=== PATIENT | female | born 1940 | race Caucasian/White ===

== ENCOUNTER → 2017-10-26 | Outpatient (CLI) | payer MEDICARE, OTHER ==
[~2017-10-26] MED LIST: ATECHL; LISI20 PO; POTCHL20ER PO; Percocet 5-3251 EACH PO; Zofran8 MG PO
== END ==
LOC: PLD 10:04 → LAB SHORT 10:04
DX: C44.609 Unspecified malignant neoplasm of skin of left upper limb, including shoulder (principal); C44.602 Unspecified malignant neoplasm of skin of right upper limb, including shoulder; C44.40 Unspecified malignant neoplasm of skin of scalp and neck
CPT/HCPCS: 88305

== ENCOUNTER → 2018-10-04 | Outpatient (CLI) | payer MEDICARE | END | disposition home or self-care (01) | LOC: PLD 13:48 → LAB SHORT 13:48 | DX: D48.5 Neoplasm of uncertain behavior of skin (principal) | CPT/HCPCS: 88305 ==

== ENCOUNTER → 2019-04-11 | Outpatient (CLI) | payer MEDICARE, OTHER | END | disposition home or self-care (01) | LOC: PLD 11:12 → LAB SHORT 11:12 | DX: D48.5 Neoplasm of uncertain behavior of skin (principal) | CPT/HCPCS: 88305 ==

== ENCOUNTER → 2020-03-09 | Outpatient (CLI) | payer MEDICARE, OTHER ==
[~2020-03-09] MED LIST changes: +ALDACTONE25 MG PO; +AMOCLA500 PO; +CALCIUM 600 +1 EA11 PO; +CENTRUM SILVER1 EAC2 PO; +CLON.1 PO; +FISH OIL PO; +IBUP400 PO; +LOSA25 PO; +MAGNESIUM PO; +METO50 PO; +VISBIOME PROBIOTIC PO; +Vitamin B-121000 MCG PO; +Vitamin D2000 UNIT PO
== END | disposition home or self-care (01) ==
LOC: LAB EV 16:16 → LAB SHORT 16:16
DX: J18.1 Lobar pneumonia, unspecified organism (principal); Z20.828 Contact with and (suspected) exposure to other viral communicable diseases
CPT/HCPCS: U0003

== ENCOUNTER 2020-03-19 19:16 | Inpatient (IN) | payer MEDICARE, OTHER ==
[~2020-03-19] VITALS: Ht 165.1 cm; Wt 89.8 kg
[~2020-03-19 19:16] MED LIST changes: -ALDACTONE25 MG PO; -AMOCLA500 PO; -CALCIUM 600 +1 EA11 PO; -CENTRUM SILVER1 EAC2 PO; -CLON.1 PO; -FISH OIL PO; -IBUP400 PO; -LOSA25 PO; -MAGNESIUM PO; -METO50 PO; -VISBIOME PROBIOTIC PO; -Vitamin B-121000 MCG PO; -Vitamin D2000 UNIT PO
[2020-03-19 20:40] LABS: BASOPHILS ABSOLUTE AUTO 0.05 K/mm3 (0.00-0.23); BASOPHILS PERCENT AUTO 1 % (0-2); EOSINOPHILS ABSOLUTE AUTO 0.32 K/mm3 (0.00-0.68); EOSINOPHILS PERCENT AUTO 4 % (0-6); Hematocrit 54.9 % (33.0-51.0); Hemoglobin 18.3 g/dL (11.5-16.0); IMMATURE GRAN ABSOLUTE AUTO 0.02 K/mm3 (0.00-0.10); IMMATURE GRAN PERCENT AUTO 0 % (0-1); LYMPHOCYTES ABSOLUTE AUTO 1.93 K/mm3 (0.84-5.20); LYMPHOCYTES PERCENT AUTO 24 % (21-46); MONOCYTES ABSOLUTE AUTO 0.69 K/mm3 (0.16-1.47); MONOCYTES PERCENT AUTO 9 % (4-13); Mean Corpuscular HGB 29.1 pg (26.0-34.0); Mean Corpuscular HGB Conc 33.3 g/dL (31.5-36.5); Mean Corpuscular Volume 87 fL (80-100); Mean Platelet Volume 10.6 fL (9.1-12.4); NEUTROPHILS ABSOLUTE AUTO 5.12 K/mm3 (1.96-9.15); NEUTROPHILS PERCENT AUTO 63 % (41-73); Platelet Count 224 K/mm3 (150-400); RDW Coefficient Variation 12.7 % (11.7-14.2); RDW Standard Deviation 41.1 fL (35.1-46.3); Red Blood Cell Count 6.29 M/mm3 (3.80-5.20); White Blood Cell Count 8.13 K/mm3 (4.00-11.30)
[2020-03-19 21:02] LABS: Alanine Aminotransfer (ALT/SGP 25 U/L (12-78); Albumin, Blood 3.6 g/dL (3.4-5.0); Albumin/Globulin Ratio 0.8 (0.8-1.8); Alk Phos 100 U/L (50-136); Anion Gap 7 mmol/L (6-16); Aspartate Aminotrans (AST/SGOT 39 U/L (12-37); Bilirubin, Total 1.2 mg/dL (0.1-1.0); Blood Urea Nitrogen 18 mg/dL (8-24); CO2, Blood 24 mmol/L (21-32); Calcium, Blood 10.4 mg/dL (8.5-10.1); Chloride, Blood 108 mmol/L (98-108); Creatinine, Blood 0.86 mg/dL (0.40-1.00); Globulin, Blood 4.6 g/dL (2.2-4.0); Glomerular Filtration Rate >60 (60-); Glucose, Blood 121 mg/dL (70-99); Potassium, Blood 4.7 mmol/L (3.5-5.5); Sodium, Blood 139 mmol/L (136-145); Total Protein, Blood 8.2 g/dL (6.4-8.2); Troponin I <0.015 ng/mL (0.000-0.040)
[2020-03-20] MEDS ORDERED: LOSA25 PO (05:25)
[2020-03-20] MEDS ORDERED: CLON.1 PO (05:27)
[2020-03-20] MEDS ORDERED: METO50 PO (05:27)
[2020-03-20] MEDS ORDERED: ALDACTONE25 MG PO (05:28)
[2020-03-20] MEDS ORDERED: FISH OIL PO (05:29)
[2020-03-20] MEDS ORDERED: Vitamin B-121000 MCG PO (05:29)
[2020-03-20] MEDS ORDERED: Vitamin D2000 UNIT PO (05:30)
[2020-03-20] MEDS ORDERED: CALCIUM 600 +1 EA11 PO (05:30)
[2020-03-20] MEDS ORDERED: CENTRUM SILVER1 EAC2 PO (05:31)
[2020-03-20] MEDS ORDERED: MAGNESIUM PO (05:31)
[2020-03-20] MEDS ORDERED: IBUP400 PO (05:31)
--- NOTE | 2020-03-20 05:48 | NUR ---
0359 PT ARRIVED TO ROOM FROM ER IN STABLE CONDITION. PT REPORTS SOB THAT INCREASES WITH EXERTION, SHE IS ON RA AT 96%. TELE IS AFIB WITH BBB AT 80'S. NO OTHER APPARENT SIGNS OF DISTRESS. CALL LIGHT IS IN REACH.
--- NOTE | 2020-03-20 05:51 | NUR ---
PT LYING IN BED, EYES CLOSED, APPEARS TO BE RESTING. BREATHING IS EVEN, UNLABORED. NO APPARENT SIGNS OF DISTRESS. CALL LIGHT IS IN REACH. NO OTHER CHANGES THIS SHIFT.
--- NOTE | 2020-03-20 05:51 | NUR ---
PT IS AAO X 4, ON RA AT 96%. PT REPORTS SOB THAT INCREASES WITH EXERTION. TELE IS AFIB WITH BBB, PT HAS A HISTORY OF THIS WELL.
[2020-03-20 06:32] LABS: Appearance, Urine Clear (Clear); Color, Urine Yellow (P-Yellow); Source, Urine Clean Catch
[2020-03-20 06:33] LABS: Bilirubin, Urine Neg (Neg); Blood, Urine Neg (Neg); Glucose Qualitative, Urine Neg (Neg); Ketones, Urine 2+ (Neg); Leukocyte Esterase, Urine Neg (Neg); Nitrite, Urine Neg (Neg); Protein, Urine 1+ (Neg); Urobilinogen, Urine NORM (Normal)
[2020-03-20 06:45] LABS: Adenovirus Not Detected (NOT DETECT); Bordetella pertussis Not Detected (NOT DETECT); Chlamydophila pneumoniae Not Detected (NOT DETECT); Coronavirus 229E Not Detected (NOT DETECT); Coronavirus HKU1 Not Detected (NOT DETECT); Coronavirus NL63 Not Detected (NOT DETECT); Coronavirus OC43 Not Detected (NOT DETECT); Human Metapneumovirus Not Detected (NOT DETECT); Human Rhinovirus/Enterovirus Not Detected (NOT DETECT); Influenza A/2009-H1 Not Detected (NOT DETECT); Influenza A/H1 Not Detected (NOT DETECT); Influenza A/H3 Not Detected (NOT DETECT); Influenza B Not Detected (NOT DETECT); Mycoplasma pneumoniae Not Detected (NOT DETECT); Parainfluenza Virus 1 Not Detected (NOT DETECT); Parainfluenza Virus 2 Not Detected (NOT DETECT); Parainfluenza Virus 3 Not Detected (NOT DETECT); Parainfluenza Virus 4 Not Detected (NOT DETECT); Respiratory Syncytial Virus Not Detected (NOT DETECT); SARS-Cov-2 (COVID-19), BioFire Not Detected (NOT DETECT)
--- NOTE | 2020-03-20 17:45 | NUR ---
SHIFT SUMMARY PT A/O X4 AND IND. DIAGNOSED W/PNEUMONIA MORE THAN A WEEK AGO. GOT IV ANTIBIOTICS IN THE ER PRIOR TO COMING TO MEDICAL FLOOR. CHEST X RAY SHOWED DENSE R LOBE CONSOLIDATION. HYPERTENSIVE WHEN SHE CAME IN. BP DECREASED SINCE GETTING AM HEART MEDICATIONS. WILL PROBABLY DISCHARGE TOMORROW AND FOLLOW UP OP FOR PET SCAN AND CT GUIDED BIOPSY. VSS
[2020-03-21 05:04] LABS: BASOPHILS ABSOLUTE AUTO 0.08 K/mm3 (0.00-0.23); BASOPHILS PERCENT AUTO 1 % (0-2); EOSINOPHILS ABSOLUTE AUTO 0.47 K/mm3 (0.00-0.68); EOSINOPHILS PERCENT AUTO 7 % (0-6); Hemoglobin 16.2 g/dL (11.5-16.0); IMMATURE GRAN ABSOLUTE AUTO 0.01 K/mm3 (0.00-0.10); IMMATURE GRAN PERCENT AUTO 0 % (0-1); LYMPHOCYTES PERCENT AUTO 25 % (21-46); MONOCYTES ABSOLUTE AUTO 0.68 K/mm3 (0.16-1.47); MONOCYTES PERCENT AUTO 10 % (4-13); Mean Corpuscular HGB 29.2 pg (26.0-34.0); Mean Corpuscular HGB Conc 33.1 g/dL (31.5-36.5); Mean Corpuscular Volume 88 fL (80-100); Mean Platelet Volume 10.5 fL (9.1-12.4); NEUTROPHILS ABSOLUTE AUTO 3.68 K/mm3 (1.96-9.15); NEUTROPHILS PERCENT AUTO 57 % (41-73); Platelet Count 183 K/mm3 (150-400); RDW Coefficient Variation 12.8 % (11.7-14.2); RDW Standard Deviation 41.8 fL (35.1-46.3); Red Blood Cell Count 5.54 M/mm3 (3.80-5.20); White Blood Cell Count 6.52 K/mm3 (4.00-11.30)
--- NOTE | 2020-03-21 06:34 | NUR ---
SHIFT SUMMARY PT IS A 79 Y/O FEMALE, ADMITTED FOR RLL PNA. SHE IS A&O X 4, INDEPENDENT IN THE ROOM. TELE SHOWED AFIB IN THE 70S. VITAL SIGNS OTHERWISE STABLE. NO COMPLAINTS OF ACUTE PAIN, NAUSEA OR SOB. SHE COMPLETED 1L OF NS @ 75 ML/HR. PT SLEPT WELL THROUGH THE NIGHT. NO OTHER ACUTE CHANGES IN PT CONDITION NOTED. WILL CONTINUE TO MONITOR AND TREAT PER EMAR UNTIL HAND OFF TO DAY SHIFT RN.
[2020-03-21] MEDS ORDERED: VISBIOME PROBIOTIC PO (10:57)
[2020-03-21] MEDS ORDERED: AMOCLA500 PO (10:58)
--- NOTE | 2020-03-21 11:17 | NUR ---
DISCHARGE INSTRUCTIONS REVIEWED WITH PT- PT VERB UNDERSTANDING. NEW RX FAXED TO [facility]. PT WAITING FOR RIDE HOME
--- NOTE | 2020-03-21 13:02 | NUR ---
1252 PT DISCHARGED PERAONAL BELONGINGS WITH PT
== END 2020-03-21 12:52 | disposition home or self-care (01) | DRG 195 ==
LOC: ER 19:16 → MEDS 19:17
PROVIDERS: Internal Medicine; Physician Assistant; ADMIT Internal Medicine
DX: J18.9 Pneumonia, unspecified organism (principal); I10 Essential (primary) hypertension; Z20.828 Contact with and (suspected) exposure to other viral communicable diseases; R91.8 Other nonspecific abnormal finding of lung field
CPT/HCPCS: 0202U; 36415; 71260; 80053; 83880; 84145; 84484; 85025; 93005; 93010; 96365; 96366; 96367; 96372; G0378; J0456; J0696; J1650; J7030; J7050; Q9967

== ENCOUNTER 2020-05-07 11:27 | Day surgery (SDC) | payer MEDICARE, OTHER ==
[~2020-05-07 11:27] MED LIST changes: +ALDACTONE25 MG PO; +AMOCLA500 PO; +CALCIUM 600 +1 EA11 PO; +CENTRUM SILVER1 EAC2 PO; +CLON.1 PO; +FISH OIL PO; +IBUP400 PO; +LOSA25 PO; +MAGNESIUM PO; +METO50 PO; +VISBIOME PROBIOTIC PO; +Vitamin B-121000 MCG PO; +Vitamin D2000 UNIT PO
--- NOTE | 2020-05-07 12:44 | NUR ---
History, Chart, Medications and Allergies reviewed before start of procedure.Patient confirms NPO status except b/p pill with sip of water. pt in w/c due to sob. on 3lnc at home.
--- NOTE | 2020-05-07 12:57 | NUR ---
05/07/20 Marisa Bales MONITOR INTACT WITH CONTINUOUS PULSE OXIMETRY AND INTERMITTENT BP.
--- NOTE | 2020-05-07 14:30 | NUR ---
PATIENT HAS FREQUENT MOIST COUGH, SOMETIMES PRODUCTIVE. RESP EVEN AND LABORED. BIOX 95% ON 5L O2/NC. LUNGS CLEAR, BUT DIMINISHED T/O.
--- NOTE | 2020-05-07 14:54 | NUR ---
PATIENT TRANSFERED TO RADIOLOGY VIA [facility] FOR CXR.
--- NOTE | 2020-05-07 14:59 | NUR ---
PATIENT BACK FROM RADIOLOGY.
--- NOTE | 2020-05-07 15:09 | NUR ---
REPORT GIVEN TO KINJAL GARCIA RN.
--- NOTE | 2020-05-07 16:05 | NUR ---
PT REPORT FROM CRIS GRACE RN, PT AWAKE AND ORIENTED, SATS 96% ON 3LNC. SAME HOME O2. WAITING FOR RADIOLOGY TO CALL WITH CXR RESULTS.
--- NOTE | 2020-05-07 16:06 | NUR ---
SPOKE TO RADIOLOGY, CXR WITHIN NORMAL LIMITS. PT COUGHING HAS DECREASED TO A TOLERABLE LEVEL PRIOR TO PROCEDURE PER PT AND FAMILY. VS REMAIN STABLE, Patient up to Ambulate independently. Gait steady. Discharge instructions reviewed with patient. Patient verbalizes understanding. Copy given to patient to take home. Patient States Post-Procedure ride home has been arranged. Discharged via wheelchair to private car for ride home. PT ABLE TO CLEAR SECRETIONS, NO EVIDENCE OF BLEEDING NOTED.
== END 2020-05-07 23:17 | disposition home or self-care (01) ==
LOC: ORSCMMR 11:27 → ORD 11:27
PROVIDERS: Internal Medicine Critical Care Medicine
PROC: 0BBF8ZX Excision of Right Lower Lung Lobe, Via Natural or Artificial Opening Endoscopic, Diagnostic (ICD-10-PCS; principal; 2020-05-07 12:30)
PROC: 0BB68ZX Excision of Right Lower Lobe Bronchus, Via Natural or Artificial Opening Endoscopic, Diagnostic (ICD-10-PCS; principal; 2020-05-07 12:30)
DX: C34.31 Malignant neoplasm of lower lobe, right bronchus or lung (principal); R06.01 Orthopnea; R63.1 Polydipsia; R09.02 Hypoxemia; Z99.81 Dependence on supplemental oxygen; Z79.899 Other long term (current) drug therapy
CPT/HCPCS: 71045; 88305; J0171; J2250; J3010; J7120

== ENCOUNTER 2020-05-21 14:49 | Inpatient (IN) | payer MEDICARE, OTHER ==
[~2020-05-21] VITALS: Ht 165.1 cm; Wt 80.5 kg
[2020-05-21 15:29] LABS: BASOPHILS ABSOLUTE AUTO 0.05 K/mm3 (0.00-0.23); BASOPHILS PERCENT AUTO 0 % (0-2); EOSINOPHILS ABSOLUTE AUTO 0.11 K/mm3 (0.00-0.68); EOSINOPHILS PERCENT AUTO 1 % (0-6); IMMATURE GRAN ABSOLUTE AUTO 0.06 K/mm3 (0.00-0.10); IMMATURE GRAN PERCENT AUTO 1 % (0-1); LYMPHOCYTES ABSOLUTE AUTO 0.84 K/mm3 (0.84-5.20); LYMPHOCYTES PERCENT AUTO 7 % (21-46); MONOCYTES ABSOLUTE AUTO 0.64 K/mm3 (0.16-1.47); MONOCYTES PERCENT AUTO 5 % (4-13); Mean Corpuscular HGB 28.4 pg (26.0-34.0); Mean Corpuscular HGB Conc 31.3 g/dL (31.5-36.5); Mean Corpuscular Volume 91 fL (80-100); Mean Platelet Volume 10.7 fL (9.1-12.4); NEUTROPHILS ABSOLUTE AUTO 10.21 K/mm3 (1.96-9.15); NEUTROPHILS PERCENT AUTO 86 % (41-73); Platelet Count 257 K/mm3 (150-400); RDW Coefficient Variation 13.2 % (11.7-14.2); RDW Standard Deviation 44.7 fL (35.1-46.3); Red Blood Cell Count 6.68 M/mm3 (3.80-5.20); White Blood Cell Count 11.91 K/mm3 (4.00-11.30)
[2020-05-21 15:30] LABS: Hematocrit 60.8 % (33.0-51.0)
[2020-05-21 15:54] LABS: Alanine Aminotransfer (ALT/SGP 22 U/L (12-78); Albumin, Blood 3.3 g/dL (3.4-5.0); Albumin/Globulin Ratio 0.7 (0.8-1.8); Alk Phos 113 U/L (50-136); Anion Gap 10 mmol/L (6-16); Aspartate Aminotrans (AST/SGOT 27 U/L (12-37); Bilirubin, Total 1.4 mg/dL (0.1-1.0); Blood Urea Nitrogen 21 mg/dL (8-24); Bun/Creatinine Ratio 21.3 (12.0-20.0); CO2, Blood 27 mmol/L (21-32); Calcium, Blood 10.6 mg/dL (8.5-10.1); Chloride, Blood 100 mmol/L (98-108); Creatinine, Blood 0.99 mg/dL (0.40-1.00); Globulin, Blood 4.9 g/dL (2.2-4.0); Glomerular Filtration Rate 58 (60-); Glucose, Blood 179 mg/dL (70-99); Potassium, Blood 4.7 mmol/L (3.5-5.5); Sodium, Blood 137 mmol/L (136-145); Total Protein, Blood 8.2 g/dL (6.4-8.2); Troponin I <0.015 ng/mL (0.000-0.040)
[2020-05-21 16:56] LABS: Influenza A, PCR Negative (NEGATIVE); Influenza B, PCR Negative (NEGATIVE); Resp Syncytial Virus, PCR Negative (NEGATIVE); SARS-Cov-2 (COVID-19) PCR, MMC Negative (NEGATIVE)
[2020-05-21 17:09] LABS: International Normalized Ratio 1.14; Prothrombin Time Results 12.1 Sec (9.7-11.5)
[2020-05-21 18:45] LABS: PCO2 Venous 42.3 mmHg (38-42); PO2 Venous 101 mmHg (38-42); pH Blood Venous 7.43 (7.34-7.37)
[2020-05-21 18:46] LABS: Base Excess Venous 3.8 mmol/L; Bicarbonate Venous 27.3 mmol/L (24.0-30.0)
[2020-05-21] MEDS ORDERED: CATAPRES0.1 MG PO (19:00)
[2020-05-21] MEDS ORDERED: METOPROLOL TART50 M1 PO (19:00)
[2020-05-21] MEDS ORDERED: LOSA50 PO (19:00)
--- NOTE | 2020-05-22 03:57 | NUR ---
SUMMARY PT ARRIVED TO ROOM IN NO DISTRESS. PT DENIES INCREASED SOB. PT REPORTS SOME DISCOMFORT AT THORACENTESIS SITE. PT HAD NO OTHER COMPLAINTS OR ISSUES NOTED. PT HAS BEEN SLEEPING WELL ON O2 COMFORTABLY. CALL LIGHT IN REACH.
[2020-05-22 05:58] LABS: Hematocrit 50.9 % (33.0-51.0); Hemoglobin 16.2 g/dL (11.5-16.0); Mean Corpuscular HGB 28.5 pg (26.0-34.0); Mean Corpuscular HGB Conc 31.8 g/dL (31.5-36.5); Mean Corpuscular Volume 90 fL (80-100); Mean Platelet Volume 10.6 fL (9.1-12.4); Platelet Count 214 K/mm3 (150-400); RDW Coefficient Variation 13.1 % (11.7-14.2); Red Blood Cell Count 5.69 M/mm3 (3.80-5.20); White Blood Cell Count 14.15 K/mm3 (4.00-11.30)
[2020-05-22 06:21] LABS: Anion Gap 5 mmol/L (6-16); Blood Urea Nitrogen 23 mg/dL (8-24); Bun/Creatinine Ratio 26.4 (12.0-20.0); CO2, Blood 31 mmol/L (21-32); Calcium, Blood 9.7 mg/dL (8.5-10.1); Chloride, Blood 102 mmol/L (98-108); Creatinine, Blood 0.87 mg/dL (0.40-1.00); Glomerular Filtration Rate >60 (60-); Glucose, Blood 111 mg/dL (70-99); Potassium, Blood 4.5 mmol/L (3.5-5.5); Sodium, Blood 138 mmol/L (136-145)
--- NOTE | 2020-05-22 12:08 | NUR ---
Echocardiogram performed by Joi Barth under my supervision.
--- NOTE | 2020-05-22 18:47 | NUR ---
SHIFT SUMMARY. A&OX4, SBA TO BATHROOM WITH FWW. PT ON 7L O2 NC, BASELINE PER PT IS 3L. R LUNG WITH VERY DIMINISHED TO ABSENT AIR MOVEMENT, L LUNG CLEAR. PT REPORTS INTERMITTENT R CHEST PAIN WITH COUGHING, PT DENIED NEED FOR PAIN MEDICATION. PT C/O NAUSEA ONCE, NAUSEA MANAGED WITH CURRENT ORDERS. DR. MEEKS CONSULTED TODAY, PHARMACY DID NOT HAVE CHEMO DRUG PRESCRIBED BY DR. MEEKS TILL TOMORROW, PT AND CN AWARE. NO OTHER CHANGES OR CONCERNS.
--- NOTE | 2020-05-22 19:27 | NUR ---
Spiritual care note: Cristela was appreciaitve of prayer and gentle certified addiction counselor. I will remain available.
--- NOTE | 2020-05-23 07:40 | NUR ---
SHIFT SUMMARY AOX4. VSS. TELE AFIB c BBB HR 90-115. SPO2 @99% ON 7L LAST NIGHT, RT TITRATED O2 DOWN TO 5L, SPO2 >90%. LUNGS SOUND DIM & ABSENT BREATH SOUND RLL. PT DENIES PAIN OR NAUSEA. DOES REPORT FEELING A BIT ANXIOUS R/T STARTING CHEMO. SBY ASSIST c AMBULATION. CALL LIGHT IN REACH.
--- NOTE | 2020-05-23 14:50 | NUR ---
CHEMO INFUSION PREMEDS GIVEN. NEW IV R FA WITH GOOD BLOOD RETURN. CARBOPLATIN INFUSING, REVIEWED PT EDUCATION WITH PT- VERB UNDERSTANDING. VSS. PTS DAUGHTER AT BEDSIDE.
--- NOTE | 2020-05-23 15:01 | NUR ---
Attempted to visit for Initial pal care consult. Pt has just had chemo tx started and infusing, with premedications given. Pt in semifowlers/hob elevated and sleeping soundly. Family/visitor at bedside requested that I not wake her so I did not step any further into the room. Told family member that I would return tomorrow and check in with pt. EMR and PNs reviewed.
--- NOTE | 2020-05-23 15:46 | NUR ---
CHEMO INFUSION CARBOPLATIN INFUSION COMPLETED. VSS. PT TOLERATING WELL. IV REMAINS PATENT WITH GOOD BLOOD RETURN. TAXOL INFUSION STARTED. PT IN GOOD SPIRITS. DAUGHTER AT BEDSIDE.
--- NOTE | 2020-05-23 17:43 | NUR ---
PT IS A/OX3, PLEASANT AND COPERATIVE, THE PT IS UP WITH MINIMAL ASSIST, THE PT'S O2 IS TITRATED TO 4L/MIN AT THIS TIME PTS O2 SAT'S IN THE MID 90'S, PT APPEARS SOB EVEN AT REST, THE PT DENIED ANY PAIN THIS SHIFT, PT IS CURRENTLY RECIEVING CHEMO THERAPY AND APPEARS TO BE TOLERATING IT WELL, [employer]HOU[employer] PACKAGING SUPERVISORGISELA KEENE IS ADMINISTERING THE THERAPY, PT DAUGHTER IS AT THE BEDSIDE AT THIS TIME, CALL LIGHT IN REACH, WILL CONTINUE TO MONITOR AND ASSESS FOR CHANGES
--- NOTE | 2020-05-23 18:51 | NUR ---
CHEMO INFUSION COMPLETED. PT CHUCHO WELL. IV REMAINED PATENT THROUGHOUT INFUSION.
--- NOTE | 2020-05-24 05:55 | NUR ---
SHIFT SUMMARY PT IS A 79 Y/O FEMALE, ADMITTED FOR ACUTE ON CHRONIC RESPIRATORY FAILURE AND RECENT STAGE 4 LUNG CA DX. SHE IS A&O X 4, SBA TO THE BATHROOM. NO C/O PAIN OR NAUSEA, WITH SOME MILD DYSPNEA NOTED WITH EXERTION. TELE SHOWED AFIB IN THE 100S. VITAL SIGNS OTHERWISE STABLE. NO ACUTE CHANGES IN PT CONDITION NOTED DURING THE NIGHT. WILL CONTINUE TO MONITOR AND TREAT PER EMAR UNTIL HAND OFF TO DAY SHIFT RN.
--- NOTE | 2020-05-24 16:50 | NUR ---
PT IS A/OX3, PLEASANT AND COOPERATIVE, THE PT IS UP WITH MINIMAL ASSIST WITH THE FWW, THE PT GETS VERY SOB WITH ACTIVITY, TODAY THE PTS O2 WAS TITRATED DOWN TO 3 LITERS FROM 4L/MIN, THE PTS BIOX WAS 94% , HOWEVER, THE PT FRLT SOB AND REQUESTED THAT IT BE TURNED BACK TO 4L/MIN, PT SEEMED TO BREATH EASIER ON THE 4L/MIN, PT DENIED ANY PAIN OR NAUSEA T/O THE DAY, PTS SON IS AT THE BEDSIDE AT THIS TIME, CALL LIGHT IN REACH, NO OTHER CHANGES NOTICED THIS SHIFT
--- NOTE | 2020-05-25 06:44 | NUR ---
SHIFT SUMMARY: VSS. AFEB. AAOX4. MAKES NEEDS KNOWN. UP AMB IN ROOM W/SBA AND FWW. CONT. 02 95-98% ON 4L VIA NC. SOB WHEN TALKING AND WHEN EXERTING HERSELF. R LOBES DIM, L LOBES CTA. DENIES PAIN. NO ACUTE CHANGES OVERNIGHT.
[2020-05-25] MEDS ORDERED: XARELTO15 MG PO (13:22)
--- NOTE | 2020-05-25 15:47 | NUR ---
DISCHARGE NOTE- PT DISCHARGED HOME WITH HER DAUGHTER. VERBAL AND WRITTEN DISCHARGE INSTRUCTIONS PROVIDED AND PT AND HER DAUGHTER ACKNOWLEDGED UNDERSTANDING OF THEM, NO FURTHER QUESTIONS AT THE TIME OF DISCHARGE. JUST PRIOR TO DISCHARGE THE PT DAUGHTER REQUESTED THE PT BE SWABBED FOR STREP D/T HER SORE THROAT THAT HAS GOTTEN WORSE IN THE LAST 2 DAYS (SORE THROAT HAS BEEN ONGOING FOR WEEKS PER PT AND DAUGHTER). SPOKE TO DR NASSAR AND SWAB WAS ORDERED AND COMPLETED. SORE THROAT SPRAY WAS ORDERED AND GIVEN. [facility] PT AND DAUGHTER. DAUGHTER HAD THE ORDER TRANSFERED TO [facility] FOR RODRIGUZE REASONS. PROVIDED THE PT DAUGHTER WITH VOUCHERS AND COUPONS FOR THE XERALTO. PT ESCORTED OUT VIA WC BY THE RN.
== END 2020-05-25 15:25 | disposition home or self-care (01) | DRG 180 ==
LOC: ER 14:49 → MEDS 18:33 → ENPENDDIS 05-25 10:08 → MEDS 05-25 15:25
PROVIDERS: Emergency Medicine; ADMIT Internal Medicine
PROC: 0W993ZZ Drainage of Right Pleural Cavity, Percutaneous Approach (ICD-10-PCS; principal; 2020-05-21)
PROC: 3E03305 Introduction of Other Antineoplastic into Peripheral Vein, Percutaneous Approach (ICD-10-PCS; 2020-05-21)
DX: C34.31 Malignant neoplasm of lower lobe, right bronchus or lung (principal); J96.21 Acute and chronic respiratory failure with hypoxia; J91.0 Malignant pleural effusion; I82.431 Acute embolism and thrombosis of right popliteal vein; C34.2 Malignant neoplasm of middle lobe, bronchus or lung; I48.91 Unspecified atrial fibrillation; I10 Essential (primary) hypertension
CPT/HCPCS: 0241U; 32555; 36415; 71045; 80048; 80053; 82803; 83880; 84484; 85025; 85027; 85610; 87081; 87430; 93005; 93010; 93306; 93971; 99285-25; J1100; J1940; J2405; J7060; J9045; J9267